=== PATIENT | male | born 1965 | race Caucasian/White ===

== ENCOUNTER 2023-06-08 10:53 | Outpatient (AMB) | payer BC, SELFPAY ==
--- NOTE | 2023-06-08 10:54 | A.OFFVIS_ITS ---
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 HPI: This 58-year-old male underwent an L2-3 lumbar fusion in 2012. He states that 6 months ago he gradually developed pain on the right side of his back and right hip into the groin. Six weeks ago the symptoms significantly increased. He had a injection the right hip without success. He also states that he has discomfort in both legs with walking and standing that improves when he sits down. He denies weakness. Apparently a CT of the pelvis was done and which showed no abnormalities with the hips. He tried physical therapy and acupuncture in the past PMH: Hypertension, hypothyroidism, seizures, PTSD, celiac disease, asthma, depression and anxiety, insomnia Medications: Losartan, Synthroid, tamsulosin, Effexor, Abilify, clonazepam, oxycodone, tizanidine, hydrochlorothiazide, Ambien and Keppra Allergies: None Social history: . Two children. 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 Walking produces pain on the right hip. Inward and outward rotation of the right hip is painful. Cross leg produces pain in the right SI joint. Straight leg raise is negative. No sensory or motor deficits. Radiological Studies: MRI done at [facility] on 05/19/2023 show status post L2-3 lumbar fusion. Multilevel lumbar degenerative disc disease and a moderate right L4-5 lateral recess and L5 foraminal stenosis. Impression/Plan: This patient is suffering from in pain dominantly in the right hip area with a differential diagnosis of L5 radiculopathy/SI joint dysfunction/hip pathology. Apparently hip pathology was excluded and therefore I will focus on the L5 nerve root and or SI joint. I requested a right L5 block from Dr. Bhargav Figueroa we gave him a previous steroid injection . The patient will contact me with the results. Thank you for allowing me to participate in your patients care. total time spent was 50 minutes in counseling ,coordination of plan, personal review of imaging, and subsequent plan Sean Barajas MD, PhD Spine Fellowship Trained Neurosurgeon Director, [facility] Coding Level of Care Code New Pt Level 4 (02568) Diagnoses Right hip pain M25.551
== END 2023-06-08 12:02 | disposition home or self-care (01) ==
PROVIDERS: PCP Physician Assistant; Visit Provider Neurological Surgery
DX: M25.551 Pain in right hip (principal)
CPT/HCPCS: 99204

== ENCOUNTER → 2023-06-08 10:53 | Outpatient (BNVA) | payer BC, SELFPAY | PROVIDERS: PCP Physician Assistant; Visit Provider Neurological Surgery ==

== ENCOUNTER 2023-10-13 05:35 | Day surgery (SDC) | payer BC, SELFPAY ==
[2023-10-05 14:34] VITALS: BMI 33.9
[2023-10-13] VITALS (7 sets, daily range): BP systolic 105–151; BP diastolic 42–76; PULSE 58–65; RESP 16–18; TEMP 36.2–36.6; O2SAT 93–99; BMI 32.9
--- NOTE | ~2023-10-13 | FL_ITS ---
EXAMINATION: XR FLUOROSCOPY WITH IMAGES CLINICAL INFORMATION: Right-sided L5 foraminotomy. COMPARISON: None available. TECHNIQUE: Fluoroscopy Supervised By: Dr. Jimmie Barajas. Fluoroscopy Time: 0.2 seconds. Cumulative Dose: 2.3713 mGy. DAP: 1.0315 Gycm2. Images: 1. FINDINGS: Intraoperative fluoroscopy and spot films were performed during a procedure in the OR. A surgical probe is present at the L5-S1 level. Fixation hardware is partially visualized from L3 upwards. A L2-L3 disc prosthesis is present. Please correlate with Dr. Jimmie Barajas's report for complete details. FL/FL guidance in OR IMPRESSION: Intraoperative fluoroscopy and spot films were obtained. Please see Dr. Jimmie Barajas's report for complete details.
[2023-10-13] MEDS: Gabapentin 300 MG CAPSULE PO (06:10)
[2023-10-13] MEDS: Lactated Ringers 1,000 ML 100 ML IVCONT (06:12)
[2023-10-13] MEDS: methocarbamoL 750 MG TABLET PO (06:29)
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
--- NOTE | 2023-10-13 07:36 | MHC.SHP ---
Pre-Procedural Eval Section A - 24 Hr Update-Section A only Date of Service: 10/13/23 The patient is an INPATIENT: No Changes since office visit: No Cold of Flu in the past 2 weeks, No New Medical Problems, No Changes in Medication and No Patient answered all questions The patient has been examined within 24 hours of the surgical procedure. The History & Physical has been completed within 30 days and I have reviewed it.: No Section B - Complete if H&P > 30 days Chief Complaint: Pain in right hip Allergies: Allergies Allergy/AdvReac Type Severity Reaction Status Date / Time gluten Allergy Gastrointestinal Verified 10/05/23 12:56 Upset nkda Allergy Unknown Uncoded 10/04/23 16:19 Review of Systems Sugical H&P ROS: Negative: Constitution, Cardiovascular, Respiratory, Neurological, Psychiatric, Hem-Onc, Allergic/Immunologic, Gastrointestinal, Genitourinary, Musculoskeletal, Integumentary, Endocrine and Eyes/Ears/Nose/Throat Exam Surgical H&P Exam: Normal: HEENT, Normal: Heart, Normal: Lungs, Normal: Extremities, Normal: Abdomen, Normal: Skin and Normal: Neurological (patient is awake,alert,oriented ) Plan Diagnosis/Plan: Unchanged right L5 foraminotomy Time Spent With Patient Time: Total time managing care of this patient today __6__ minutes.
--- NOTE | 2023-10-13 07:37 | P.DS_ITS ---
DS: Providers Provider Date of Service: 10/13/23 Date of discharge: 10/13/23 Primary care physician: Morales Tomas MD Admitting clinician: Sean Barajas DS: Diagnosis Discharge Diagnosis (1) Lumbar radiculopathy: Status: Acute DS: Summary Time Attestation Discharge Coordination Time (in mins): 6 Quality: Safe Use of Opioids Does Pt have an Active Cancer Diagnosis on the Problem List?: No Quality: Stroke Does the patient have a stroke diagnosis?: No Physical Exam Vital Signs: Vital Signs: Last Vital Signs Temp 97.4 F 10/13/23 05:59 Pulse 64 10/13/23 05:59 Resp 18 10/13/23 05:59 BP 133/76 10/13/23 05:59 Pulse Ox 99 10/13/23 05:59 O2 Del Method Room Air 10/13/23 05:59 BMI result Body Mass Index 32.9 Discharge Plan Discharge Patient Disposition: Home, Self-Care Referrals: Morales Tomas MD [Primary Care Provider] - 1 Week Discharge Medications: New oxycodone 5 mg tablet 5 mg PO Q4H PRN (Reason: pain) Qty: 30 0RF Rx Instructions: Partial Fill upon patient request. Continued tizanidine 4 mg tablet 4 mg PO TID PRN (Reason: Pain) clonazepam 1 mg tablet 1 mg PO TID PRN (Reason: Anxiety) aripiprazole 5 mg tablet 5 mg PO DAILY zolpidem 12.5 mg tablet,ext release multiphase 12.5 mg PO BEDTIME PRN (Reason: Insomnia) hydrochlorothiazide 12.5 mg tablet 12.5 mg PO DAILY dapsone 25 mg Tablet 50 mg PO DAILY PRN (Reason: Skin Irritation) docusate sodium [Colace] 100 mg Capsule 100 mg PO DAILY albuterol sulfate 90 mcg/actuation HFA aerosol inhaler 2 puff INHALATION QID PRN (Reason: Shortness Of Breath Or Wheezing) olvwnqrrqj-qojhevleopsvj-vrbr [Fioricet] 50-300-40 mg Capsule 1 cap PO Q8H PRN (Reason: Migraine Headache) losartan 50 mg tablet 50 mg PO DAILY venlafaxine 150 mg capsule,extended release 24hr 150 mg PO DAILY omeprazole 40 mg capsule,delayed release(DR/EC) 40 mg PO DAILY oxycodone 15 mg tablet 15 mg PO QID PRN (Reason: Pain) levothyroxine 75 mcg tablet 75 mcg PO QAM tamsulosin 0.4 mg capsule 0.8 mg PO DAILY levetiracetam 250 mg tablet 250 mg PO BID fluticasone propionate 110 mcg/actuation HFA aerosol inhaler 2 puff INHALATION BID Discharge Orders: Discharge Order (Routine); Ordered 10/13/23 Ordered By: Zeeshan Rosales Diet: Advance to usual diet Activity on Discharge: As tolerated Activity Restrictions/Additional Instructions: After your spinal surgery we ask you to observe the following restrictions/guidelines: Activity: It is normal to feel some discomfort as you increase your activity, but that will improve with time. We ask you avoid heavy lifting or acitivities that cause pain. As a general rule, 8lbs is a safe limit for lifting right after surgery. Walk as much as you feel comfortable but not to exhaustion. You will feel extra tired the first few days after surgery. Stay well hydrated. It is OK to walk up and down stairs You may return to driving when you are off narcotics (such as vicodin, oxycodone, dilaudid, etc), and you are back to normal functional capacity. If you have any concerns please check with office before driving. Return to work is specific to each patient and each surgery, so please speak with your doctor/PA at first follow up. Please bring paperwork such as FMLA at that time if you need it filled out. Medications: For optimum pain control, it is best to start with a combination of 500 mg of Tylenol every 4 hours with 600 mg of Motrin every 8 hours, and use narcotics as needed in between for breakthrough pain. We will give you a short supply of narcotics after surgery (usually one weeks worth). If you need more please call the office but do not use more than prescri bed. You will need to give our office 48 hours notice if you need narcotics refilled and we do not fill narcotics on weekends or evenings. If you are on a narcotic, it is a good idea to take a stool softener such as colace or senna to avoid constipation If you take blood thinner such as aspirin, Plavix, Coumadin, Effient, Eliquis etc for conditions such as Afib, DVT, Pulmonary embolus, coronary disease, stents etc please speak with your surgeon about specific details as to when you can resume these medications. You can resume NSAIDs on post op day 1 (eg: Motrin, Naproxen, etc). Follow up: Please call the office, , after surgery to arrange a 3 week follow up for wound check. Wound Care: You may remove your dressing on the first day after surgery. ?You may ?leave open to air. Please do not remove the steri strips underneath. they will fall off on their own in one week. IT IS NORMAL FOR THE WOUND TO OOZE OR BE BLOODY FOR A FEW DAYS AFTER SURGERY. ?IF THIS HAPPENS JUST PLACE NEW DRESSING OVER IT TO AVOID STAINING CLOTHES. You may shower on post op day # 1 We ask that you do not let the water soak the wound. If it does get wet, just towel dry lightly. Please do not scrub your incision or place any type of chemical/ointment on the wound. No tub baths, pools or jacuzzis for one month. If you have any leaking or redness from your wound, or fevers, please call office Print Language: Tamazight
--- NOTE | 2023-10-13 08:30 | W.PM.OPN ---
Operative Note Operative Note Date of Service: 10/13/23 Narrative: Preoperative Diagnosis: Spinal stenosis/lateral recess stenosis/neural foraminal stenosis Operation: Right L5 Laminotomy, Partial facetectomy and foraminotomy with use of microscope Consent Informed Consent was obtained for this operation. I have explained the nature, purpose and benefits of the operation. I have discussed the risks and benefit of the operation including possible complications or adverse events with patient/family. Alternative(s) were discussed with the patient with their relative benefits and risks as well as the consequences of not accepting the operation were included in obtaining consent. Surgeon: ANDREIA SANDRA MD, PHD Procedure Assisted By: christen Jiang Description of Procedure This patient is suffering from a right lumbar radiculopathy. MRI shows a right L5 neuroforaminal stenosis. The patient was offered a decompression of the nervous structures. The procedure complications were explained. The patient was consented. The patient was brought to the operating room and endotracheally intubated. The patient was turned in prone position on the Cecil frame. Prep and drape was done followed by timeout. Physician construction project assistant provided access. A mid lumbar incision was made followed by release of the paravertebral muscle on the right side to expose the right L5 lamina and facet joint. An intraoperative x-ray was obtained to confirm the correct level. The microscope was brought in. I took over the procedure. The high-speed drill was used to do a right L5 laminotomy. #2 Kerrison was used to further remove the lamina towards the L5 foramen. With a nerve hook the medial wall of the L5 pedicle was palpated as well as the beginning of the L5 foramen. The facet joint was partially drilled down after which with a #2 Kerrison a foraminotomy was done. Finally a foraminotomy Kerrison was used to complete the foraminotomy. A long nerve hook could be easily passed lateral and dorsally from the nerve root, a sign of relief of the neuroforaminal stenosis and decompression of the nerve root . The microscope was removed. Hemostasis was done. Incision was closed in 2 layers. Steri-Strips were used to approximate incision. An OpSite with Tegaderm was used to cover the incision. All sponge needle counts were correct. Patient was extubated and transported in stable is to recovery room. Anesthesia: General Estimated Blood Loss (ml): Minimal Duration of Surgery: 40 minutes Minutes Postoperative Plan: Discharge to home
--- NOTE | 2023-10-13 08:33 | W.PM.OPN ---
Operative Note Operative Note Date of Service: 10/13/23 Narrative: Preoperative Diagnosis: Spinal stenosis/lateral recess stenosis/neural foraminal stenosis Operation: Right L5 Laminotomy, Partial facetectomy and foraminotomy with use of microscope Consent Informed Consent was obtained for this operation. I have explained the nature, purpose and benefits of the operation. I have discussed the risks and benefit of the operation including possible complications or adverse events with patient/family. Alternative(s) were discussed with the patient with their relative benefits and risks as well as the consequences of not accepting the operation were included in obtaining consent. Surgeon: ANDREIA SANDRA MD, PHD Procedure Assisted By: Zeeshan BAILEY Description of Procedure This patient is suffering from a right lumbar radiculopathy with the MRI showing a right L5 neuroforaminal stenosis. The patient was offered a decompression of the nervous structures. The procedure complications were explained. The patient was consented. The patient was brought to the operating room and endotracheally intubated. The patient was turned in prone position on the Cecil frame. Prep and drape was done followed by timeout. Physician early childhood teacher assistant provided access. A mid lumbar incision was made followed by release of the paravertebral muscle on the right side to expose the L5 lamina and facet joint. An intraoperative x-ray was obtained to confirm the correct level. The microscope was brought in. I took over the procedure. The high-speed drill was used to do a L5 laminotomy. #2 Kerrison was used to further remove the lamina towards the L5 foramen. With a nerve hook the medial wall of the L5 pedicle was palpated as well as the beginning of the L5 foramen. The facet joint was partially drilled down after which with a #2 Kerrison a foraminotomy was done. Finally a foraminotomy Kerrison was used to complete the foraminotomy. A long nerve hook could be easily passed lateral and dorsally from the nerve root, a sign of relief of the neuroforaminal stenosis and decompression of the nerve root . The microscope was removed. Hemostasis was done. Incision was closed in 2 layers. Steri-Strips were used to approximate incision. An OpSite with Tegaderm was used to cover the incision. All sponge needle counts were correct. Patient was extubated and transported in stable is to recovery room. Anesthesia: General Estimated Blood Loss (ml): Minimal Duration of Surgery: 40 Minutes Postoperative Plan: Discharge to home
[2023-10-13] MEDS: oxyCODONE HCl Immed Release 5 MG TABLET PO (09:26)
== END 2023-10-13 09:57 | disposition home or self-care (01) ==
PROVIDERS: PCP Family Medicine; Visit Provider Neurological Surgery
PROC: (CPT 63047; principal; 2023-10-13 07:30)
DX: M48.061 Spinal stenosis, lumbar region without neurogenic claudication (principal); M54.16 Radiculopathy, lumbar region; M25.551 Pain in right hip; I10 Essential (primary) hypertension; J45.909 Unspecified asthma, uncomplicated; Z79.899 Other long term (current) drug therapy; Z98.1 Arthrodesis status
CPT/HCPCS: 63047; J0131; J0690; J1100; J1885; J2250; J2371; J2405; J2704; J3010

== ENCOUNTER → 2023-10-13 05:35 | Outpatient (BNV) | payer BC, SELFPAY | PROVIDERS: PCP Family Medicine; Visit Provider Neurological Surgery | DX: M48.062 Spinal stenosis, lumbar region with neurogenic claudication (principal); M54.16 Radiculopathy, lumbar region | CPT/HCPCS: 63047; 99499 ==

== ENCOUNTER 2023-11-07 11:25 | Outpatient (AMB) | payer BC, SELFPAY ==
--- NOTE | 2023-11-07 11:28 | A.SPINEOV_ITS ---
Intake Visit Reasons: 1st post op Intake Note: Mr. Calixto is here today for his 1st post-op Search Director Required: No Allergies gluten Allergy (Verified 11/07/23 11:29) Gastrointestinal Upset nkda Allergy (Uncoded 10/04/23 16:19) Unknown Assessment & Plan Assessment & Plan (1) Status post lumbar spine surgery for decompression of spinal cord: Code(s): Z98.890 - Other specified postprocedural states Category: Surgical Plan Operation: Right L5 Laminotomy, Partial facetectomy and foraminotomy Woo is a pleasant 58-year-old male who comes in today for his 1st postoperative visit. He has a prior history of L2-3 lumbar fusion, and had a right-sided L5 laminotomy completed by our service on 10/12/2022. He states that since the surgery he has been healing well. Initially he had quite a bit of pain in his low back, but that resolved alongside his right-sided lumbar radiculopathy. He asked several questions regarding the postoperative healing course which I answered to the best of my ability. He did question if he is going to be a candidate for subsequent lumbar fusion in the near future, as his previous fusion was >10 years ago and he was informed it would last him about 10 years until he needed another level done. I discussed this with him and encoura ged him to refrain from seeking out subsequent fusions unless he becomes severely symptomatic. No new neurological deficits, the patient is able to ambulate well and rises from a seated position without difficulty. His posterior incision site appears closed, well healed. I would like to follow up with Woo again in 6 weeks for re-evaluation during his 2nd postoperative visit. Jose A Barajas MD,PhD [facility] Coding Level of Care Code Global (30355) Diagnoses Status post lumbar spine surgery for decompression of spinal cord Z98.890
== END 2023-11-07 11:40 | disposition home or self-care (01) ==
PROVIDERS: PCP Family Medicine; Visit Provider Physician Assistant
DX: Z98.890 Other specified postprocedural states (principal)
CPT/HCPCS: 99024

== ENCOUNTER → 2023-11-07 11:25 | Outpatient (BNVA) | payer BC, SELFPAY | PROVIDERS: PCP Family Medicine; Visit Provider Physician Assistant ==